=== PATIENT | male | born 1960 | race Caucasian/White ===

== ENCOUNTER 2018-06-25 15:04 | Emergency (ER) | payer OTHER ==
[~2018-06-25] VITALS: Ht 177.8 cm; Wt 86.2 kg
[~2018-06-25 15:04] MED LIST: FAMOTIDINE PO; PREDNISONE 10 M10 M1 PO; TRICOR145 MG; ZESTORETIC 20-1 EACH
[2018-06-25 16:15] LABS: ABSOLUTE BASOPHILS 0.1 thou/uL (0.0-0.2); ABSOLUTE LYMPHOCYTES 2.5 thou/uL (0.8-5.3); ABSOLUTE MONOCYTES 1.4 thou/uL (0.0-1.2); ABSOLUTE NEUTROPHILS 9.9 thou/uL (1.6-8.1); EOSINOPHILS 0.2 %; HEMATOCRIT 40.1 % (42.0-52.0); HEMOGLOBIN 13.5 gm/dL (14.0-18.0); LYMPHOCYTES 17.7 %; MCH 27.6 pg (26.0-34.0); MCHC 33.7 g/dL (28.0-37.0); MCV 81.9 fL (80.0-100.0); MONOCYTES 9.9 %; MPV 7.3 fl. (7.2-11.1); NUCLEATED RBCS 0 /100WBC; PLATELET COUNT* 550 thou/uL (150-400); POLYS 71.2 %; RBC 4.89 mil/uL (4.50-6.00); RDW-CV 15.6 % (10.5-14.5); WBC 13.9 thou/uL (4.0-11.0)
[2018-06-25 16:22] LABS: POTASSIUM 3.4 mmol/L (3.5-5.1)
[2018-06-25 16:32] LABS: ALBUMIN 3.5 g/dL (3.4-5.0); TOTAL BILIRUBIN 0.9 mg/dL (<0.1-1.0); TOTAL PROTEIN 7.6 g/dL (6.4-8.2)
[2018-06-25] MEDS ORDERED: PERCOCET 5-3251 EACH PO (16:47)
[2018-06-25 17:45] VITALS: BP 132/74
== END 2018-06-25 17:49 | disposition home or self-care (01) ==
LOC: M.ERS 15:04
PROVIDERS: Family Medicine
DX: S43.015A Anterior dislocation of left humerus, initial encounter (principal); S42.252A Displaced fracture of greater tuberosity of left humerus, initial encounter for closed fracture; S02.2XXA Fracture of nasal bones, initial encounter for closed fracture; S00.81XA Abrasion of other part of head, initial encounter; I10 Essential (primary) hypertension; E78.00 Pure hypercholesterolemia, unspecified; W00.0XXA Fall on same level due to ice and snow, initial encounter; Y92.89 Other specified places as the place of occurrence of the external cause; Y93.89 Activity, other specified; Y99.8 Other external cause status

== ENCOUNTER → 2018-07-02 | Day surgery (SDC) | payer OTHER ==
[~2018-07-02] MED LIST changes: +NORCO 5-325 TA1 EACH PO; +OXYCODONE HCL 55 MG PO; +PERCOCET 5-3251 EACH PO; +ZOCOR20 MG PO
--- NOTE | 2018-07-02 16:06 | EKG ---
[place] [address] ELECTROCARDIOGRAM REPORT Name: ANDREW ARELLANO Room: [facility].#: [id number] Admission: 07/02/18 Attend Phys: Andrew Selby DO Discharge: Date of : 60 Report #: [id number] THIS REPORT FOR: //name// [facility] Test Date: 2018-07-02 Test Time: 06:24:39 Pat Name: ANDREW ARELLANO Department: Room: Gender: M Med Dir: [place] : 1960 Requested By: Andrew Selby Order Number: [id number] Reading MD: Jordy Granados Measurements Intervals [place] Rate: 91 P: 19 CA: 159 QRS: 87 QRSD: 83 T: 64 QT: 340 QTc: 419 Interpretive Statements Sinus rhythm Ventricular premature complex Baseline wander in lead(s) V5 No previous ECG available for comparison Electronically Signed On 07-02-2018 16:06:31 [employer]CTION [employer] by Jordy Granados [email or web address] <ELECTRONICALLY SIGNED> By: Jordy Granados MD, [facility] 07/02/18 1606 0624 0624 Jordy Granados MD, FACC /EPI
--- NOTE | 2018-07-03 06:52 | OP ---
[address] [address] OPERATIVE REPORT Name: MANOJ ARELLANO Room: [facility].#: [id number] Admission: 07/02/18 Attend Phys: Manoj Selby DO Discharge: Date of : 60 Report #: [id number] THIS REPORT FOR: //name// CC: Manoj Selby [facility] physician/PCP DICTATED BY: Adolfo Jernigan DO DATE OF SERVICE: 07/02/2018 PREOPERATIVE DIAGNOSES: Left shoulder greater tuberosity fracture and status post anterior dislocation. POSTOPERATIVE DIAGNOSES: Left shoulder greater tuberosity fracture and status post anterior dislocation plus supraspinatus rotator cuff tear. SURGEON: Manoj Selby DO SENIOR RESIDENT CARE DIRECTOR: Adolfo Jernigan DO OPERATION PERFORMED: Open reduction and internal fixation of left shoulder greater tuberosity and repair of rotator cuff. IMPLANTS UTILIZED: Two 4 mm fully threaded cannulated cancellous screws measuring 42 and 44 mm, also two 7 mm washers. These were [place] screws. ANESTHESIA: General plus a peripheral nerve block. ESTIMATED BLOOD LOSS: 50 mL. FLUIDS: Crystalloids. DRAINS: None. SPECIMENS: None. COMPLICATIONS: None. CONDITION: Stable. DISPOSITION: PACU to home. PREOPERATIVE ANTIBIOTICS: 2 grams IV Ancef. INDICATIONS FOR PROCEDURE: The patient is a pleasant 57-year-old male who was initially seen in the Emergency Department on 06/24 following a slip on the ice [address] [address] OPERATIVE REPORT Name: MANOJ ARELLANO Room: [facility]#: [id number] Admission: 07/02/18 Attend Phys: Manoj Selby DO Discharge: Date of : 60 Report #: [id number] and fall onto his left shoulder. In the Emergency Department, he was found to have an anterior dislocation which was reduced. He was also found to have a displaced greater tuberosity fracture. He did follow up in the [facility]opedic [facility] where we discussed his injury and the operative indications. The fracture was displaced more than 5 mm and would likely result in decreased function due to impingement with the acromion resulting in long-term loss of motion and strength of the left shoulder as well as possibly chronic pain. Due to these reasons, open reduction internal fixation with possible rotator cuff repair was discussed with the patient. Risks, indications, and treatment alternatives were reviewed in detail with him. Informed consent was signed. OPERATION IN DETAIL: The patient was identified in preoperative holding area where he identified the left shoulder as the operative side and this was marked. He was turned to the operating room and placed on the operating table initially in a supine position and was given benefit of general anesthesia. The patient was then placed in the beach chair position and the left upper extremity was sterilely prepped and draped in the usual fashion. Timeout was performed and everyone in the room was in agreement of the correct patient, side, operation and antibiotics. The left shoulder anatomical landmarks were then marked out including the coracoid, clavicle, acromion. A standard deltopectoral incision was utilized off the medial side of the coracoid extending distally approximately 10 cm. Sharp dissection was carried out with a 10 blade through the skin and subcutaneous tissue and electrocautery was utilized for hemostasis and dissection was carried down to the deltopectoral fascia. This was incised and the fat stripe was identified in the interval, which marked the interval between the deltoid and the pectoralis muscle. Underlying the fat stripe, the cephalic vein was identified and dissected free. This was then retracted laterally and a blunt dissection was utilized to free up the subdeltoid adhesions. The fracture was identified off of the proximal humerus. Initially, the displaced fragment was not readily visualized. We did find the rotator cuff tissue, which was torn and retracted within the subacromial space and this was grasped with a Thomas and large sutures were placed through this as a stay suture that we could then mobilize the rotator cuff tissue with. We then took some x-rays and identified the displaced fracture fragment, which was displaced more posteriorly than initially suspected. This was then reduced and was found to tse in nicely into the fracture bed. This was held in the reduced position with 1.4 mm guidewires. Once again, fluoroscopy was utilized to confirm that the fracture was reduced. The arm was taken throughout range of motion and was found to be free of impingement. At this time, multiple bony fragments were removed with sharp dissection, making sure to keep as much of the rotator cuff tissue intact; however, there were several small fragments which would not hold any sort of fixation and would likely lead to impingement. Next, the near cortex was drilled with 2.7 mm drill. The guidewires were measured to the appropriate size and the fully threaded screws were then placed and found to give good compression at the fracture site and gave us excellent stability. The guidewires were then removed and the arm was once again taken [place] [address] OPERATIVE REPORT Name: MANOJ ARELLANO Room: [facility]#: [id number] Admission: 07/02/18 Attend Phys: Manoj Selby DO Discharge: Date of : 60 Report #: [id number] motion under C-arm fluoroscopy. At this time, the remaining anterior cuff tissue was found continued to be displaced. Therefore, we elected to use a 5.5 mm SwiveLock to repair the rotator cuff tissue to its footprint. The large Arthrex FiberTape suture was used and passed in a horizontal mattress fashion and was then passed through the SwiveLock. A punch was utilized at the anterior aspect of the distal apex of the fracture. This was found to bring in the cuff tissue to a reduced position. A SwiveLock was then malleted and screwed into position such that the screw head was flushed with the bony cortex. At this time, the rotator interval was closed with 1-0 Vicryl suture and this left us with an excellent repair of the bony fragment as well as the rotator cuff tissue. The wound was then thoroughly irrigated. A layered closure was then performed utilizing 0 Vicryl on the deltopectoral fascia followed by 3-0 Monocryl on the dermal layer and then a running 3-0 Stratafix suture for the subcuticular layer. Dermabond skin glue was then used to reinforce the skin. Sterile Mepilex was then applied. The patient was then placed in a SlingShot immobilizer and awakened from general anesthetic in a stable condition. <ELECTRONICALLY SIGNED> By: Manoj Selby DO 07/03/18 [id number] Selby DO /john
== END | disposition home or self-care (01) ==
LOC: M.SUR 06:04
DX: S42.252A Displaced fracture of greater tuberosity of left humerus, initial encounter for closed fracture (principal); M75.102 Unspecified rotator cuff tear or rupture of left shoulder, not specified as traumatic; Z79.899 Other long term (current) drug therapy; W01.0XXA Fall on same level from slipping, tripping and stumbling without subsequent striking against object, initial encounter; Y93.89 Activity, other specified; Y92.89 Other specified places as the place of occurrence of the external cause; Y99.8 Other external cause status